=== PATIENT | female | born 1935 | race Caucasian/White ===

== ENCOUNTER → 2017-04-27 12:07 | Outpatient (CLI) | payer MEDICARE, OTHER | END | disposition home or self-care (01) | LOC: D.CT 12:07 | DX: R91.1 Solitary pulmonary nodule (principal); C50.919 Malignant neoplasm of unspecified site of unspecified female breast; C67.9 Malignant neoplasm of bladder, unspecified ==

== ENCOUNTER → 2017-05-16 17:24 | Outpatient (CLI) | payer MEDICARE, OTHER | END | disposition home or self-care (01) | LOC: D.MAMMO 15:00 | DX: Z85.3 Personal history of malignant neoplasm of breast (principal) ==

== ENCOUNTER → 2017-10-08 08:22 | Outpatient (CLI) | payer MEDICARE, OTHER | END | disposition home or self-care (01) | LOC: D.RAD 08:22 | DX: R13.10 Dysphagia, unspecified (principal) ==

== ENCOUNTER → 2018-03-11 10:44 | Outpatient (CLI) | payer MEDICARE, OTHER | END | disposition home or self-care (01) | LOC: D.CT 03-08 08:30 | DX: R91.1 Solitary pulmonary nodule (principal) ==

== ENCOUNTER 2018-04-08 08:00 | Outpatient (CLI) | payer MEDICARE, OTHER | END 2018-04-08 10:39 | disposition home or self-care (01) | LOC: D.MAMMO 08:00 | DX: Z85.3 Personal history of malignant neoplasm of breast (principal); R92.0 Mammographic microcalcification found on diagnostic imaging of breast; Z98.890 Other specified postprocedural states ==

== ENCOUNTER 2018-11-02 21:52 | Emergency (ER) | payer MEDICARE, BC ==
[~2018-11-02] VITALS: Ht 162.6 cm; Wt 77.1 kg
[2018-11-02 21:53] VITALS: Ht 162.6 cm; Wt 77.1 kg
[2018-11-02] MEDS ORDERED: TAMOXIFEN CITRA20 MG PO (21:55)
[2018-11-02] MEDS ORDERED: LIPITOR10 MG (21:55)
[2018-11-02] MEDS ORDERED: NORVASC10 MG PO (21:55)
[2018-11-02] MEDS ORDERED: OMEPRAZOLE20 M1 PO (21:56)
[2018-11-02] MEDS ORDERED: LEXAPRO20 MG PO (21:56)
[2018-11-02] MEDS ORDERED: CYCLOBENZAPRINE10 MG PO (22:18)
[2018-11-02] MEDS ORDERED: MEDROL DOSE PACK4 MG PO (22:18)
[2018-11-02 22:53] VITALS: BP 142/89
== END 2018-11-02 22:36 | disposition home or self-care (01) ==
LOC: D.ER 21:52
DX: M54.31 Sciatica, right side (principal); M62.838 Other muscle spasm

== ENCOUNTER → 2018-11-12 11:05 | Outpatient (CLI) | payer MEDICARE ==
[~2018-11-12 11:05] MED LIST: CYCLOBENZAPRINE10 MG PO; LEXAPRO20 MG PO; LIPITOR10 MG; MEDROL DOSE PACK4 MG PO; NORVASC10 MG PO; OMEPRAZOLE20 M1 PO; TAMOXIFEN CITRA20 MG PO
== END | disposition home or self-care (01) ==
LOC: D.CT 10-14 14:00
DX: R91.1 Solitary pulmonary nodule (principal)

== ENCOUNTER → 2019-03-13 09:48 | Outpatient (CLI) | payer MEDICARE | END | disposition home or self-care (01) | LOC: D.MRI 09:48 | PROVIDERS: ATTEND Orthopaedic Surgery | DX: M75.102 Unspecified rotator cuff tear or rupture of left shoulder, not specified as traumatic (principal) ==

== ENCOUNTER 2019-05-08 13:22 | Emergency (ER) | payer MEDICARE ==
[~2019-05-08] VITALS: Ht 162.6 cm; Wt 81.8 kg
[2019-05-08 13:37] VITALS: BP 146/90; Ht 162.6 cm; Wt 81.8 kg
[2019-05-08 14:19] LABS: BASOPHILS 0.1 % (0-2); EOSINOPHILS 0.6 % (0-7); HEMATOCRIT 43.1 % (36.0-48.0); HEMOGLOBIN 14.3 g/dL (12-16); IMMATURE GRANULOCYTES 0.4 % (0-5); LYMPHOCYTES 13.3 % (15-50); MCH 28.4 pg (26.0-34.0); MCHC 33.2 g/dL (31.0-37.0); MCV 85.5 fL (80.0-100.0); MEAN PLATELET VOLUME 9.5 fL (7.4-10.4); NEUTROPHILS 78.6 % (40-80); PLATELET COUNT 230 10x3/uL (130-400); RBC 5.04 10x6/uL (4.00-5.40); RDW 12.9 % (11.5-14.5); WBC 15.8 10x3/uL (4.8-10.8)
[2019-05-08 14:26] LABS: ALBUMIN 3.4 g/dL (3.4-5.0); ANION GAP 15.4 mmol/L (8-16); BILIRUBIN - TOTAL 0.47 mg/dL (0.2-1.3); CALCIUM 9.4 mg/dL (8.5-10.1); CARBON DIOXIDE 26.3 mmol/L (21.0-32.0); CREATININE - SERUM 1.3 mg/dL (0.6-1.3); POTASSIUM - SERUM 3.7 mmol/L (3.5-5.1); PROTEIN - SERUM 7.7 g/dL (6.4-8.2)
[2019-05-08 14:51] LABS: APPEARANCE CLEAR (CLEAR); BILIRUBIN NEGATIVE (NEGATIVE); COLOR YELLOW (YELLOW); GLUCOSE NEGATIVE (NEGATIVE); KETONE NEGATIVE (NEGATIVE); NITRITE NEGATIVE (NEGATIVE); PROTEIN TRACE mg/dL (NEGATIVE); SPECIFIC GRAVITY 1.025 (1.005-1.020); UROBILINOGEN NORMAL (NORMAL)
[2019-05-08 14:52] LABS: BACTERIA MODERATE /hpf (NONE SEEN); RED CELLS - URINE 0-5 /hpf (0-5)
== END 2019-05-08 16:10 | disposition home or self-care (01) ==
LOC: D.ER 13:22
PROVIDERS: Family Medicine
DX: F32.9 Major depressive disorder, single episode, unspecified (principal)

== ENCOUNTER 2019-05-11 02:37 | Inpatient (IN) | payer MEDICARE, BC ==
[~2019-05-11] VITALS: Ht 162.6 cm; Wt 96.5 kg
[2019-05-11 03:00] LABS: BASOPHILS 0.1 % (0-2); EOSINOPHILS 0.9 % (0-7); HEMATOCRIT 40.4 % (36.0-48.0); HEMOGLOBIN 13.5 g/dL (12-16); IMMATURE GRANULOCYTES 0.2 % (0-5); LYMPHOCYTES 16.8 % (15-50); MCH 28.1 pg (26.0-34.0); MCHC 33.4 g/dL (31.0-37.0); MCV 84.2 fL (80.0-100.0); MEAN PLATELET VOLUME 9.3 fL (7.4-10.4); MONOCYTES 6.1 % (2-11); NEUTROPHILS 75.9 % (40-80); PLATELET COUNT 244 10x3/uL (130-400); RDW 12.4 % (11.5-14.5); WBC 13.7 10x3/uL (4.8-10.8)
--- NOTE | 2019-05-11 03:00 | NUR ---
RN AND PT SPOKE TO PT DAUGHTER, ADONIS, AT [phone].
[2019-05-11 03:12] LABS: ALBUMIN 3.2 g/dL (3.4-5.0); ANION GAP 16.1 mmol/L (8-16); BILIRUBIN - TOTAL 0.37 mg/dL (0.2-1.3); CALCIUM 9.3 mg/dL (8.5-10.1); CARBON DIOXIDE 23.2 mmol/L (21.0-32.0); CREATININE - SERUM 1.3 mg/dL (0.6-1.3); POTASSIUM - SERUM 3.3 mmol/L (3.5-5.1); PROTEIN - SERUM 7.4 g/dL (6.4-8.2)
[2019-05-11 03:18] LABS: APPEARANCE CLEAR (CLEAR); COLOR YELLOW (YELLOW); GLUCOSE NEGATIVE (NEGATIVE); KETONE NEGATIVE (NEGATIVE); NITRITE NEGATIVE (NEGATIVE); PROTEIN NEGATIVE (NEGATIVE); SPECIFIC GRAVITY 1.015 (1.005-1.020)
[2019-05-11 03:19] LABS: BILIRUBIN NEGATIVE (NEGATIVE); UROBILINOGEN NORMAL (NORMAL)
[2019-05-11 03:50] LABS: THYROID STIMULATING HORMONE 4.65 uIU/mL (0.36-3.74)
[2019-05-11 03:51] LABS: TROPONIN-I 0.066 ng/mL (0.000-0.060)
--- NOTE | 2019-05-11 04:00 | NUR ---
PT UPDATED ON PLAN OF CARE. PT DENIES FURTHER QUESTIONS.
--- NOTE | 2019-05-11 04:45 | NUR ---
PT ARRIVED VIA STRECHER FROM ER WITH DX WEAKNESS, VERTIGO AND ELEVATED TROPONIN. ALERT AND ORIENTED TO PERSON, PLACE AND TIME. JAMIL. IV TO LFA WITH NS AT 100CC/HR. IV PATENT.
--- NOTE | 2019-05-11 05:11 | NUR ---
HOME MEDS OF AMLODIPINE AND TRIAM/ HCTZ PLACED IN MEDICATION ENVELOPE AND PLACED IN ER PYXIS.
[2019-05-11] MEDS ORDERED: ZOLOFT100 MG PO (05:14)
[2019-05-11] MEDS ORDERED: TRIAMTERENE-HC1 EAC6 PO (05:15)
[2019-05-11 05:16] VITALS: BP 145/70; BMI 24.8
--- NOTE | 2019-05-11 07:31 | NUR ---
ASSESSMENT COMPLETED. ALERT AND ORIENTED. UP TO BR WITH HELP. GAIT STEADY. TELEMERTY SHOWS SR 60. IV TO LEFT FOREARM, PATENT. BED ALARM ON. WILL MONITOR
[2019-05-11 08:15] LABS: CKMB 0.9 U/L (0.0-3.6); CREATINE KINASE 22 UL (21-215)
[2019-05-11 08:26] LABS: TROPONIN-I 0.062 ng/mL (0.000-0.060)
[2019-05-11 08:55] VITALS: BP 124/67
[2019-05-11 13:01] VITALS: BP 135/56
[2019-05-11 14:22] LABS: CKMB 0.7 U/L (0.0-3.6); CREATINE KINASE 22 UL (21-215); TROPONIN-I 0.036 ng/mL (0.000-0.060)
--- NOTE | 2019-05-11 14:39 | NUR ---
I have reviewed this patient and I concur with the Shift Assessment completed by the Licensed Practical Nurse today this shift.
[2019-05-11 17:59] VITALS: BP 118/54
[2019-05-11 20:00] VITALS: BP 132/66
--- NOTE | 2019-05-11 20:02 | NUR ---
PT IN BR ON INITIAL ROUNDS. PT VOIDED MODERATE AMOUNT OF URINE. ASSISTED PT BACK TO BED. PT VERY UNSTEADY ON FEET. PT HAS C/O ACID REFLUX AND INSISTED ON HAVING HER PROTONIX AT TTHAT TIME. PROTONIX BROUGHT TO PT AFTER BEDSIDE ROUNDING AND PT DENIED REQUESTING MED. STATED SHE DOESN'T REMEMBER ASKING FOR PROTONIX FOR HER ACID REFLUX. ASESSMENT COMPLETED AT 1935 HRS. PT ALERT, ORIENTED TO PERSON AND PLACE. REORIENTD TO TIME AND SITUATION. POOR SHORT TERM MEMORY. IV TO LFA WITH NS AT 100CC/HR. IV PATENT. LUNGS DIMINISHED IN BASES BILAT. PALPABLE PERIPHERAL PULSES. PT REFUSES TO WEAR HOSPITAL GOWN. SR UP X2, CALL LIGHT WITHIN REACH.
--- NOTE | 2019-05-11 21:21 | NUR ---
PM MEDS GIVEN. PT CURRENTLY WATCHING TV. SR UP X2, CALL LIGHT WITHIN REACH AND BED ALARM ON.
--- NOTE | 2019-05-11 22:06 | NUR ---
ASSISTED PT TO BSC WITH STAFF X2. PT VERY WEAK AND UNSTEADY ON FEET. VOIDED 300CC OF CLEAR, YELLOW URINE. ASSISTED VLAD TO BED. JAMIL. EQUAL HAND AND FOOT STRENGHT. PT CRYING STATING SHE HAS NEVER BEEN LIKE THIS BEFORE. INFORMED PT THAT IS WHY SHE IS HERE. INFORMED PT SHE CALLED EMS LAST PM FOR THIS REASON. PT STATES SHE REMEMBERS CALLING EMS BUT NOT THE REASON WHY. EMOTIONAL SUPPORT GIVEN. SR UP X2, CALL LIGHT WITHIN REACH AND BED ALARM ON.
--- NOTE | 2019-05-11 23:50 | NUR ---
PT ASSISTED TO BSC. VOIDED 300CC OF YELLOW URINE. ASSISTED BACK TO BED. PT ABLE TO DO MORE FOR HERSELF AT THSI TIME. STILL HAS UNSTEADY GAIT AND WEAKNESS. SR UP X2, CALL LIGHT WITHIN REACH AND BED ALARM ON.
[2019-05-12 00:14] VITALS: BP 134/62
--- NOTE | 2019-05-12 02:04 | NUR ---
ATTEMPTED TO ASSIST PT TO BSC. PT WOULD NOT HELP STAFF ASSIT HER TO A SITTING POSITON. WHEN PLACED IN A SITTING POSITION PT WOULD FALL BACK ON THE BED AND GIGGLE. PT UNHAPPY ABOUT BEING PLACED ON A BEDPAN. INFORMED PT THAT IS HER ONLY OPTION AT THIS TIME. PT PLACED ON BEDPAN WITH NO URINE. BEDPAN REMOVED AND REPOSITIONED IN BED FOR COMFORT. SR UP X2, CALL LIGHT WITHIN REACH AND BED ALARM ON.
--- NOTE | 2019-05-12 02:49 | NUR ---
VOIDED ON BED AND BEDPAN. PT INCONTINENT CARE DONE AND BED LINENS CHANGED. PT TOLERATED ACTIVITY WELL. EXPLAINED TO PT SAFETY CONCERNS FOR PT AND STAFF REGARDING GETING HE UP TO THE BSC. PT STATED UNDERSTANDING. SR UP X2, CALL LIGHT WITHIN REACH AND BED ALARM ON.
--- NOTE | 2019-05-12 04:06 | NUR ---
PT RESTING WITH EYES CLOSED. RESP EVEN AND REGULAR. SR UP X2, CALL LIGHT WITHIN REACH AND BED ALARM ON.
[2019-05-12 04:15] VITALS: BP 134/60
[2019-05-12 05:41] LABS: BASOPHILS 0.1 % (0-2); EOSINOPHILS 1.3 % (0-7); HEMATOCRIT 36.7 % (36.0-48.0); HEMOGLOBIN 12.2 g/dL (12-16); IMMATURE GRANULOCYTES 0.2 % (0-5); LYMPHOCYTES 20.8 % (15-50); MCHC 33.2 g/dL (31.0-37.0); MCV 84.4 fL (80.0-100.0); MONOCYTES 6.4 % (2-11); NEUTROPHILS 71.2 % (40-80); PLATELET COUNT 212 10x3/uL (130-400); RBC 4.35 10x6/uL (4.00-5.40); RDW 12.6 % (11.5-14.5)
[2019-05-12 05:50] LABS: WBC 9.9 10x3/uL (4.8-10.8)
[2019-05-12 06:04] LABS: ANION GAP 13.1 mmol/L (8-16); CALCIUM 8.3 mg/dL (8.5-10.1); POTASSIUM - SERUM 3.1 mmol/L (3.5-5.1)
--- NOTE | 2019-05-12 06:38 | NUR ---
VSS THROUGHOUT NIGHT. PT LESS EMOTIONAL THIS AM. K+ 3.1 KCL 40 MEQ PO GIVEN. NEEDS MET; WILL CONTINUE TO MONITOR.
[2019-05-12 08:25] VITALS: BP 115/64
--- NOTE | 2019-05-12 08:27 | NUR ---
ASSESSMENT DONE. DENIES NEEDS,
--- NOTE | 2019-05-12 11:20 | NUR ---
Rehab Prescreening Consult recieved and the chart has been reviewed. She is a good ARU candidate, but has a PT eval pending. Rehab will follow to see what her functional needs are after the eval. Adenike Eubanks RN Clinical Liaison, Rehab
[2019-05-12 16:45] VITALS: BP 151/65
--- NOTE | 2019-05-12 17:04 | NUR ---
WITHOUT CHANGES OR DISTRESS NOTED AT THIS TIME
--- NOTE | 2019-05-12 17:46 | MORECARE ---
CASE MANAGEMENT DISCHARGE SUMMARY PATIENT: TAYO AGUILAR UNIT: [id number] ADM DATE: 05/12/19 AGE: 83 : 36 SEX: F ROOM/BED: D.5452 AUTHOR: LYUDMILA,DOC PHYSICIAN: REFERRING PHYSICIAN: LUCIAN VAN MD DATE OF SERVICE: 05/12/19 Discharge Plan Patient Name: TAYO AGUILAR [facility] [facility] 1935 Planned Disposition: Inpatient Rehab Anticipated Discharge Date: 05/13/19 Discharge Date: Expected LOS: 1 Initial Reviewer: [id number] Initial Review Date: 05/12/2019 Generated: 05/12/19 6:45 pm Comments DCP- Discharge Planning Updated by [id number]: Patrick Ibanez on 05/12/19 4:[address] Patient Name: TAYO AGUILAR Admission Status: ER Accout number: [id number] Admission Date: 05-12-2019 : 1935 Admission Diagnosis: Attending: LUCIAN VAN Current LOS: 1 Anticipated DC Date: 05-13-2019 Planned Disposition: Inpatient Rehab Primary Insurance: MEDICARE A & B PLANNED EXTERNAL PROVIDER: [facility] Discharge Planning Comments: CM RECEIVED ORDER FOR INPATIENT REHAB PRESCREENING. CM MET WITH PT IN ROOM TO DISCUSS DISCHARGE PLANNING AND NEEDS. PT REPORTS LIVING AT [facility] IN [place] INDEPENDENTLY AND ALONE. PT HAS A CANE WITH NO MEDICAL EQUIPMENT PROVIDER PREFERENCE. PT HAS MEALS PREPARED AND HOUSKEEPING THROUGH [facility]. CM DISCUSSED AVAILABILITY OF HOME HEALTH, REHAB SERVICES AND MEDICAL EQUIPMENT. PT WOULD LIKE REHAB AT [place] AND STATES SHE WILL PARTICIPATE WITH THERAPY TO GET STRONGER WITH GOAL TO GO HOME. CM SPOKE TO [facility]UDY OF [facility] WHO ADVISED THEY WILL ACCEPT PT IF PT WILL PARTICIPATE WITH REHAB SERVICES. CM NOTIFIED DR. VAN'S NURSE IN OFFICE WHO ADVISED THE DR. VAN IS NOT READY TO DISCHARGE PT TO REHAB. [facility] WILL ACCEPT PT AT DISCHARGE. NOTIFY [place] [facility] WHEN PT IS READY TO DISCHARGE. Inspector Insulation: Patrick Ibanez DCPIA - Discharge Planning Initial Assessment Updated by [id number]: Patrick Ibanez on 05/12/19 5:39 pm * Is the patient Alert and Oriented? Yes * How many steps to enter\exit or inside your home? NONE * PCP DR. VAN * Pharmacy PATIENT CANNOT REMEMBER * Preadmission Environment Independent [facility] Apartment * Other Environment [facility] * Facility Name [facility] * ADLs Independent * Equipment Cane * Other Equipment NO MEDICAL EQUIPMENT PROVIDER PREFERENCE * List name and contact numbers for known caregivers / representatives who currently or will assist patient after discharge: KEILAABIOLA CHEMA, BROTHER, ADONIS WASHINGTON DTR, * Verbal permission to speak to the caregivers and representatives has been obtained from the patient. N/A * Community resources currently utilized None * Please name any agencies selected above. NONE * Additional services required to return to the preadmission environment? Yes * Can the patient safely return to the preadmission environment? Yes * Has this patient been hospitalized within the prior 30 days at any hospital? No Patient Name: TAYO AGUILAR Page [id number] at 1746 All edits/amendments must be made on the electronic document DICTATION DATE: 05/12/191744 BUSINESS MACHINE OPERATOR: JANEL 05/12/191744 RPT#: [id number] LA DATE: STATUS: AD[facility] [address] [place] [address] END OF REPORT
[2019-05-12 20:00] VITALS: BP 133/75
--- NOTE | 2019-05-12 23:15 | NUR ---
PATIENT STATES SHE I HAVING PAIN IN HER PELVIC REGION BUT CANT EXPLAIN IT. WHEN ASKED IF SHE WOULD LIKE PAIN MEDICATION SHE SAID SHE WOULD NOT!!!
[2019-05-13 00:02] VITALS: BP 147/73
--- NOTE | 2019-05-13 01:25 | NUR ---
ASSISTED EGG CANDLER IN CHANGING PATIENT'S BEDDING BECAUSE PATIENT IS WET BUT IS REFUSING TO LET ANYONE TOUCH HER. FINALLY LET USE CHANGE HER AND THEN PATIENT STATED THAT HER DAUGHTER IS COMING AND SHE IS GOING TO SIC HER ON US FOR NOT TAKING CARE OF HER. PLACE A WARM BLANKET ON PATIENT AND TURNED OF AC BECAUSE PATIENT STATES SHE WAS FREEZING
--- NOTE | 2019-05-13 04:15 | NUR ---
I have reviewed this patient and I concur with the Shift Assessment completed by the Licensed Practical Nurse today this shift.
--- NOTE | 2019-05-13 04:30 | NUR ---
REPORT RECIEVED AND ROUNDING COMPLETE. PATIENT LAYING IN BED. iV WITH CATH INTACT LAYING ON BEDSIDE TABLE, I ASKEDWHAT HAPPENED TO HER IV AND SHE STATED THAT THE OTHER NURSE PULLED IT OUT. PATIENT THEN STATED THAT I COULD NOT REPLACE IT BECAUSE HER DAUGHTER IS ON HER WAY A SHE WILL PUNISH ALL OF US IF WE TOUCH HER AGAIN. PATIENT REFUSED TO LET ME PUT HER TLEMTRY BACK ON AND ALSO WOULD NOT ALLOW ME TO PUT HER O2 BACK ON HER. SHE ASKED ME TO LEAVE HER ROOM AND NOT TO COME BACK. CALL LIGHT WITHIN REACH AND I REMINDED HER HOW TO USE IT. BED IN LOWEST POSITION AND LOCKED.
--- NOTE | 2019-05-13 05:43 | NUR ---
PATIENT USED CALL LIGLAURIE TO CALL ME INTO ROOM TO TELL ME THAT SHE IS HAVING RIGHT SIDED PELVIC PAIN/SPASM. ASKED PATIENT IF SHE WANTED PAIN MEDICATION AND SHE SAIF YES. GAVE HER MEDICATIONS PER MAR. NO OTHER NEEDS AT THIS TIME CALL LIGHT WITHIN REACH.
[2019-05-13 06:36] LABS: BASOPHILS 0.2 % (0-2); EOSINOPHILS 1.2 % (0-7); HEMATOCRIT 37.4 % (36.0-48.0); HEMOGLOBIN 12.3 g/dL (12-16); IMMATURE GRANULOCYTES 0.2 % (0-5); LYMPHOCYTES 20.5 % (15-50); MCH 27.6 pg (26.0-34.0); MCHC 32.9 g/dL (31.0-37.0); MCV 83.9 fL (80.0-100.0); MEAN PLATELET VOLUME 9.2 fL (7.4-10.4); MONOCYTES 7.9 % (2-11); PLATELET COUNT 229 10x3/uL (130-400); RBC 4.46 10x6/uL (4.00-5.40); RDW 12.5 % (11.5-14.5); WBC 9.7 10x3/uL (4.8-10.8)
[2019-05-13 06:38] LABS: POTASSIUM - SERUM 3.3 mmol/L (3.5-5.1)
[2019-05-13 06:39] LABS: ANION GAP 12.5 mmol/L (8-16); CALCIUM 8.6 mg/dL (8.5-10.1); CARBON DIOXIDE 24.8 mmol/L (21.0-32.0)
--- NOTE | 2019-05-13 06:40 | NUR ---
ASSESSMENT DONE. C/O PAIN TO RT LEG NO BETTER. NOTIFY DR VAN.
[2019-05-13 07:55] VITALS: BP 154/67
[2019-05-13 12:25] VITALS: BP 158/64
[2019-05-13 14:21] VITALS: Ht 162.6 cm; Wt 96.5 kg
[2019-05-13 14:46] VITALS: BP 126/69
--- NOTE | 2019-05-13 17:30 | NUR ---
DAUGHTER AT SIDE. WITHOUT CHANGES NOTED AT THIS TIME.
--- NOTE | 2019-05-13 19:15 | NUR ---
PT LAYING IN BED WITH EYES CLOSED. MOUTH OPEN. SNORING AND RESP EVEN AND UNLABORED. PT HAS NO S/S OF DISTRESS. PT BED LOW AND CALL LIGHT IN REACH. NAME AND DATE PLACED ON BOARD. WILL CPOC
[2019-05-13 20:00] VITALS: BP 138/69
--- NOTE | 2019-05-13 22:34 | NUR ---
1/2 NS INFUSING TO LEFT FOREARM AT 75 ORDERED. PT SITTING UP WITH HOB 40 DRINKING WATER. TOOK NIGHT MEDICATIONS. PT HAS CONFUSION AND DOESNT RETAIN EDUCATION GIVEN. PT HAS NO S/S OF DISTRESS. BED LOW AND CALL LIGHT IN REACH. ALARM ON AND ACTIVE. PT DENIES ANY NEEDS. WILL CPOC
[2019-05-14] VITALS: BP 114/73
--- NOTE | 2019-05-14 00:34 | NUR ---
PT TRYING TO PULL HER HAIR OUT AND IS HAVING SOME CONFUSION. ATIVAN GIVEN ORDERED. WILL CPOC
--- NOTE | 2019-05-14 01:09 | NUR ---
PT NOW LAYING IN BED WITH EYES CLOSED SNORING WITH MOUTH OPEN. PT HAS NO S/S OF DISTRESS. 1/2 NS INFUSING ORDERED. PT BED LOW AND CALL LIGHT IN REACH. WILL CPOC
[2019-05-14 04:00] VITALS: BP 152/79
[2019-05-14 05:35] LABS: BASOPHILS 0.2 % (0-2); HEMATOCRIT 38.8 % (36.0-48.0); HEMOGLOBIN 12.6 g/dL (12-16); IMMATURE GRANULOCYTES 0.3 % (0-5); LYMPHOCYTES 17.3 % (15-50); MCH 27.6 pg (26.0-34.0); MCHC 32.5 g/dL (31.0-37.0); MCV 85.1 fL (80.0-100.0); MEAN PLATELET VOLUME 9.4 fL (7.4-10.4); MONOCYTES 6.5 % (2-11); NEUTROPHILS 73.7 % (40-80); PLATELET COUNT 232 10x3/uL (130-400); RBC 4.56 10x6/uL (4.00-5.40); RDW 12.7 % (11.5-14.5); WBC 11.3 10x3/uL (4.8-10.8)
--- NOTE | 2019-05-14 05:40 | NUR ---
MORNING PROTONIX GIVEN. PT HAS CONFUSION. NO S/S OF DISTRESS. PT BED LOW AND CALL LIGHT IN REACH. 1/2 NS INFUSING ORDERED. ALARM ON AND ACTIVE. WILL CPOC
[2019-05-14 06:03] LABS: ANION GAP 13.4 mmol/L (8-16); CALCIUM 8.5 mg/dL (8.5-10.1); CARBON DIOXIDE 26.2 mmol/L (21.0-32.0); CREATININE - SERUM 0.9 mg/dL (0.6-1.3)
[2019-05-14 06:15] LABS: POTASSIUM - SERUM 3.6 mmol/L (3.5-5.1)
[2019-05-14 07:58] VITALS: BP 132/64
--- NOTE | 2019-05-14 09:56 | NUR ---
PT AT BS ASSISTIN TO SOB.
[2019-05-14 12:45] VITALS: BP 155/60
--- NOTE | 2019-05-14 15:03 | NUR ---
Rehab Note- Continue to follow the patient. She is a good inpatient acute rehab candidiate & will be accepted to [facility] Acute Inpatient Rehab when medically stable & ready for discharge formthe acute hospital. Awaiting MRI today. Thank you for this referral! Nai Pimentel RN Clinical Liaison, [facility] Rehab
[2019-05-14 16:15] VITALS: BP 127/62
--- NOTE | 2019-05-14 19:30 | NUR ---
REPORT RECIEVED AND ROUNDING COMPLETE. PATIENT LAYING IN BED, EYES CLOSED. PATIENT EASILY AROUSED BY TALKING IN HER ROOM. DAUGHTER AT BEDSIDE. PATIENT HAS A LEFT FOREARM PIV RUNNING 1/2 NORMAL SALINE, NO S/SX OF INFILTRATION. PATIENT IS SHOWING NO S/SX OF DISTRESS AT THIS TIME. CALL LIGHT WITHIN REACH AND BED IN LOWEST AND LOCKED POSITION. PATIENT AND DAUGHTER BOTH STATE NO NEEDS AT THIS TIME.
[2019-05-14 20:00] VITALS: BP 112/70
--- NOTE | 2019-05-14 23:43 | NUR ---
PATIENT COMPLAINING OR NECK AND HIP PAIN, TREATED PAIN PER MAR
[2019-05-15 00:34] VITALS: BP 116/73; BP 146/73
--- NOTE | 2019-05-15 02:48 | NUR ---
PAGED DR. THOMPSON CONSERING PATIENTS UNCONTROLLED PAIN LEVEL.
--- NOTE | 2019-05-15 02:49 | NUR ---
DR. VAN CALLED BACK AND GAVE ORDERS. WILL FOLLOW ORDERS PER MAR
--- NOTE | 2019-05-15 04:01 | NUR ---
I have reviewed this patient and I concur with the Shift Assessment completed by the Licensed Practical Nurse today this shift.
[2019-05-15 05:01] VITALS: BP 148/70
[2019-05-15 05:03] LABS: BASOPHILS 0.1 % (0-2); EOSINOPHILS 0.4 % (0-7); HEMATOCRIT 36.9 % (36.0-48.0); HEMOGLOBIN 12.3 g/dL (12-16); IMMATURE GRANULOCYTES 0.4 % (0-5); MCH 27.8 pg (26.0-34.0); MCHC 33.3 g/dL (31.0-37.0); MCV 83.5 fL (80.0-100.0); MEAN PLATELET VOLUME 9.6 fL (7.4-10.4); MONOCYTES 6.7 % (2-11); NEUTROPHILS 85.4 % (40-80); PLATELET COUNT 223 10x3/uL (130-400); RBC 4.42 10x6/uL (4.00-5.40); RDW 12.4 % (11.5-14.5); WBC 13.6 10x3/uL (4.8-10.8)
[2019-05-15 05:42] LABS: ALBUMIN 2.7 g/dL (3.4-5.0); ANION GAP 13.7 mmol/L (8-16); BILIRUBIN - TOTAL 0.64 mg/dL (0.2-1.3); CALCIUM 8.2 mg/dL (8.5-10.1); CARBON DIOXIDE 24.6 mmol/L (21.0-32.0); CREATININE - SERUM 0.8 mg/dL (0.6-1.3); MAGNESIUM - SERUM 1.4 mg/dL (1.8-2.4); PHOSPHOROUS 2.7 mg/dL (2.5-4.9); POTASSIUM - SERUM 3.3 mmol/L (3.5-5.1); PROTEIN - SERUM 6.3 g/dL (6.4-8.2)
--- NOTE | 2019-05-15 07:34 | NUR ---
AWAKE AND WANTING PAIN MEDS. STATES RIGHT ARM AND LEG WELL HEAD ARE HURTING. TELEMERTY SHOWS SR. IV TO LEFT FA WITH 1/2NS AT 75. PT SIDE RAIL UP WITH CALL LIGHT IN REACH. WILL MONITOR
[2019-05-15 08:57] VITALS: BP 156/78
--- NOTE | 2019-05-15 11:08 | NUR ---
PT FEELS PT IS UNABLE TO SIT IN CHAIR SHE IS A TOLTAL LIFT AND HAS TO BE HELD UP.
--- NOTE | 2019-05-15 12:59 | NUR ---
Nutrition Follow-up: Diet: Cardiac PO intake: 10% avg over past 7 meals Wt: 144# Last BM: 05/09 per chart Labs reviewed Meds reviewed Rec continue current diet as tolerated. Offer nutrition supplements. [place] food preferences within diet restrictions. If PO intake does not improve, may consider nutrition support; RD available for assistance. RD following.
[2019-05-15 13:07] VITALS: BP 156/75
[2019-05-15 16:37] VITALS: BP 142/64
--- NOTE | 2019-05-15 19:40 | NUR ---
RETURN FROM [facility] TAB AND CO LOTS OF PAIN WILL GIVE MSO4 BED IS LOW AND LOCKED AND CALL LIGHT PLACED WITH PT LCTA AND SKIN WARM AND DRY
--- NOTE | 2019-05-15 20:32 | NUR ---
CONTINUES TO REST WITH EYES CLOSED RESP EVEN AND NON LABERED AT 22 I TOLD TECH TO DELAY VITAL SOUNDS TO PRESERVE PTS PAIN FREE STATE
[2019-05-16 09:04] VITALS: BP 153/72
--- NOTE | 2019-05-16 11:42 | MORECARE ---
CASE MANAGEMENT DISCHARGE SUMMARY PATIENT: TAYO AGUILAR UNIT: [id number] ADM DATE: 05/12/19 AGE: 83 : 36 SEX: F ROOM/BED: D.2757 AUTHOR: MONICA COREAS PHYSICIAN: REFERRING PHYSICIAN: LUCIAN VAN MD DATE OF SERVICE: 05/16/19 Discharge Plan Patient Name: TAYO AGUILAR [facility] [facility] 1935 Planned Disposition: Inpatient Rehab Anticipated Discharge Date: 05/13/19 Discharge Date: Expected LOS: 1 Initial Reviewer: [id number] Initial Review Date: 05/12/2019 Generated: 05/16/19 12:42 pm Comments DCP- Discharge Planning Updated by [id number]: Anaid Rea on 05/16/19 10:[address] AROUND , I RECEIVED A CALL FRO M DR VAN STATING THAT THE PATIENT WOULD NEED TO BE TRANSFERRED SOMEWHERE 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 HE HAS REQUESTED THAT WE GET THINGS STARTED SO THAT WE ARE READY TO GO WHEN THE FAMILY DECIDES IF THEY ARE WILLING TO GO TO [facility] (WHERE DR VAN WILL BE THE ACCEPTING) OR TO [place] WHERE THEY HAVE A FAMILY MEMBER OR A FRIEND THAT IS A NEUROLOGIST. HE STATED HE WOULD CALL ME BACK WHEN HE KNOWS THIS INFORMATION. @0910, I SPOKE WITH IRENA BHANDARI RNSPANISH INTERPRETER AND RECEIVED ADMINISTRATIVE APPROVAL FOR TRANSFER. CALLED [phone] AND REQUESTED COPIES OF ALL FILMS FOR TRANSFER. AND [employer] HYDRAULIC PRESS OPERATOR IS WORKING ON REQUIRED TRANSFER PAPER DOCUMENTATION. ALL THINGS ARE READY CAN BE, SOON DR VAN LETS ME KNOW WHERE WE ARE GOING TO TRANSFER. DCP- Discharge Planning Updated by [id number]: Patrick Ibanez on 05/12/19 4:[address] Patient Name: TAYO AGUILAR Admission Status: ER Accout number: [id number] Admission Date: 05-12-2019 : 1935 Admission Diagnosis: Attending: LUCIAN VAN Current LOS: 1 Anticipated DC Date: 05-13-2019 Planned Disposition: Inpatient Rehab Primary Insurance: MEDICARE A & B PLANNED EXTERNAL PROVIDER: [facility] Discharge Planning Comments: CM RECEIVED ORDER FOR INPATIENT REHAB PRESCREENING. CM MET WITH PT IN ROOM TO DISCUSS DISCHARGE PLANNING AND NEEDS. PT REPORTS LIVING AT [facility] IN [place] INDEPENDENTLY AND ALONE. PT HAS A CANE WITH NO MEDICAL EQUIPMENT PROVIDER PREFERENCE. PT HAS MEALS PREPARED AND HOUSKEEPING THROUGH [facility]. CM DISCUSSED AVAILABILITY OF HOME HEALTH, REHAB SERVICES AND MEDICAL EQUIPMENT. PT WOULD LIKE REHAB AT [place] AND STATES SHE WILL PARTICIPATE WITH THERAPY TO GET STRONGER WITH GOAL TO GO HOME. CM SPOKE TO RUDY OF [facility] WHO ADVISED THEY WILL ACCEPT PT IF PT WILL PARTICIPATE WITH REHAB SERVICES. CM NOTIFIED DR. VAN'S NURSE IN OFFICE WHO ADVISED THE DR. VAN IS NOT READY TO DISCHARGE PT TO REHAB. [facility] WILL ACCEPT PT AT DISCHARGE. NOTIFY [place] [facility] WHEN PT IS READY TO DISCHARGE. Scientific Research Manager: Patrick Ibanez DCPIA - Discharge Planning Initial Assessment Updated by [id number]: Patrick Ibanez on 05/12/19 5:39 pm * Is the patient Alert and Oriented? Yes * How many steps to enter\exit or inside your home? NONE * PCP DR. VAN * Pharmacy PATIENT CANNOT REMEMBER * Preadmission Environment Independent [facility] Apartment * Other Environment [facility] * Facility Name [facility] * ADLs Independent * Equipment Cane * Other Equipment NO MEDICAL EQUIPMENT PROVIDER PREFERENCE * List name and contact numbers for known caregivers / representatives who currently or will assist patient after discharge: YISSEL BEAR, BROTHER, ADONISRadha WASHINGTON, DTR, * Verbal permission to speak to the caregivers and representatives has been obtained from the patient. N/A * Community resources currently utilized None * Please name any agencies selected above. NONE * Additional services required to return to the preadmission environment? Yes * Can the patient safely return to the preadmission environment? Yes * Has this patient been hospitalized within the prior 30 days at any hospital? No Coverage Notice Reviewer: [id number] - Patrick Ibanez Notice Issued Date-Time: 05/14/2019 8:15 Notice Type: IM Discharge Notice Notice Delivered To: Patient Relationship to Patient: Leather Dresser Name: Delivery Method: HAND - Hand Delivered Loyda Days: Prior Verbal Notification: Recipient Understood Notice: Yes Recipient Signature: Yes Med Rec Note Co-signed by Attending: Coverage Notice Comment: Last DP export: 05/12/19 4:46 p Patient Name: TAYO AGUILAR Page [id number] at 1142 All edits/amendments must be made on the electronic document DICTATION DATE: 05/16/19 1142 LINTER TENDER: JANEL 05/16/19 1142 RPT#: [id number] DC DATE: STATUS: ADM IN [facility] [address] [place] [address] END OF REPORT
[2019-05-16] MEDS ORDERED: BACLOFEN10 MG PO (11:44)
[2019-05-16] MEDS ORDERED: ASPIRIN81 MG PO (11:44)
[2019-05-16] MEDS ORDERED: ATIVAN IV (11:45)
[2019-05-16] MEDS ORDERED: ULTRAM50 MG PO (11:46)
[2019-05-16] MEDS ORDERED: Morphine Sulfate IV (11:46)
[2019-05-16 12:20] VITALS: BP 162/75
--- NOTE | 2019-05-16 14:18 | NUR ---
OT NOTE: PT COMPLETED R HAND PROM. PT COMPLETED RUE POSITIONING TO DECREASE SKIN BREAKDOWN AND INTEGRITY OF JOINTS. PT COMPLETED FACE WASH WITH MOD A. THANK YOU, SUZANNE ERICKSON
--- NOTE | 2019-05-16 17:30 | NUR ---
DISCHARGED. TO [facility] PER AMBULANCE.
--- NOTE | 2019-05-20 08:01 | MORECARE ---
CASE MANAGEMENT DISCHARGE SUMMARY PATIENT: TAYO AGUILAR UNIT: [id number] ADM DATE: 05/12/19 AGE: 83 : 36 SEX: F ROOM/BED: D.1893 AUTHOR: MONICA COREAS PHYSICIAN: REFERRING PHYSICIAN: LUCIAN VAN MD DATE OF SERVICE: 05/20/19 Discharge Plan Patient Name: TAYO AGUILAR [facility] [facility] 1935 Planned Disposition: Acute Care Hospital Anticipated Discharge Date: 05/16/19 Discharge Date: 05/16/2019 Expected LOS: 4 Initial Reviewer: [email or web address] Initial Review Date: 05/12/2019 Generated: 05/20/19 9:01 am Comments DCP- Discharge Planning Updated by [id number]: Anaid Rea on 05/16/19 10:[address] AROUND , I RECEIVED A CALL FRO M DR VAN STATING THAT THE PATIENT WOULD NEED TO BE TRANSFERRED SOMEWHERE 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 HE HAS REQUESTED THAT WE GET THINGS STARTED SO THAT WE ARE READY TO GO WHEN THE FAMILY DECIDES IF THEY ARE WILLING TO GO TO [facility] (WHERE DR VAN WILL BE THE ACCEPTING) OR TO [place] WHERE THEY HAVE A FAMILY MEMBER OR A FRIEND THAT IS A NEUROLOGIST. HE STATED HE WOULD CALL ME BACK WHEN HE KNOWS THIS INFORMATION. @0910, I SPOKE WITH IRENA BHANDARI RNPHARMACEUTICAL OPERATOR AND RECEIVED ADMINISTRATIVE APPROVAL FOR TRANSFER. CALLED [phone] AND REQUESTED COPIES OF ALL FILMS FOR TRANSFER. AND [employer] FRONT LINE SUPERVISOR IS WORKING ON REQUIRED TRANSFER PAPER DOCUMENTATION. ALL THINGS ARE READY CAN BE, SOON DR VAN LETS ME KNOW WHERE WE ARE GOING TO TRANSFER. DCP- Discharge Planning Updated by [id number]: Patrick Ibanez on 05/12/19 4:[address] Patient Name: TAYO AGUILAR Admission Status: ER Accout number: [id number] Admission Date: 05-12-2019 : 1935 Admission Diagnosis: Attending: LUCIAN VAN Current LOS: 1 Anticipated DC Date: 05-13-2019 Planned Disposition: Inpatient Rehab Primary Insurance: MEDICARE A & B PLANNED EXTERNAL PROVIDER: [facility] Discharge Planning Comments: CM RECEIVED ORDER FOR INPATIENT REHAB PRESCREENING. CM MET WITH PT IN ROOM TO DISCUSS DISCHARGE PLANNING AND NEEDS. PT REPORTS LIVING AT [facility] IN [place] INDEPENDENTLY AND ALONE. PT HAS A CANE WITH NO MEDICAL EQUIPMENT PROVIDER PREFERENCE. PT HAS MEALS PREPARED AND HOUSKEEPING THROUGH [facility]. CM DISCUSSED AVAILABILITY OF HOME HEALTH, REHAB SERVICES AND MEDICAL EQUIPMENT. PT WOULD LIKE REHAB AT [place] AND STATES SHE WILL PARTICIPATE WITH THERAPY TO GET STRONGER WITH GOAL TO GO HOME. CM SPOKE TO RUDY OF [facility] WHO ADVISED THEY WILL ACCEPT PT IF PT WILL PARTICIPATE WITH REHAB SERVICES. CM NOTIFIED DR. VAN'S NURSE IN OFFICE WHO ADVISED THE DR. VAN IS NOT READY TO DISCHARGE PT TO REHAB. [facility] WILL ACCEPT PT AT DISCHARGE. NOTIFY [place] [facility] WHEN PT IS READY TO DISCHARGE. Salt Maker: Patrick Ibanez DCPIA - Discharge Planning Initial Assessment Updated by [id number]: Patrick Ibanez on 05/12/19 5:39 pm * Is the patient Alert and Oriented? Yes * How many steps to enter\exit or inside your home? NONE * PCP DR. VAN * Pharmacy PATIENT CANNOT REMEMBER * Preadmission Environment Independent [facility] Apartment * Other Environment [facility] * Facility Name [facility] * ADLs Independent * Equipment Cane * Other Equipment NO MEDICAL EQUIPMENT PROVIDER PREFERENCE * List name and contact numbers for known caregivers / representatives who currently or will assist patient after discharge: YISSEL BEAR, BROTHER, ADONIS W[place], DTR, * Verbal permission to speak to the caregivers and representatives has been obtained from the patient. N/A * Community resources currently utilized None * Please name any agencies selected above. NONE * Additional services required to return to the preadmission environment? Yes * Can the patient safely return to the preadmission environment? Yes * Has this patient been hospitalized within the prior 30 days at any hospital? No Coverage Notice Reviewer: [id number] - Patrick Ibanez Notice Issued Date-Time: 05/14/2019 8:15 Notice Type: IM Discharge Notice Notice Delivered To: Patient Relationship to Patient: Track Laying Supervisor Name: Delivery Method: HAND - Hand Delivered Loyda Days: Prior Verbal Notification: Recipient Understood Notice: Yes Recipient Signature: Yes Med Rec Note Co-signed by Attending: Coverage Notice Comment: Last DP export: 05/16/19 10:42 a Patient Name: TAYO AGUILAR Page [phone] at 0801 All edits/amendments must be made on the electronic document DICTATION DATE: 05/20/19 08 INTERNATIONAL TAX MANAGER: JANEL 05/20/19800 RPT#: [id number] DC DATE:05/16/19 STATUS: DIS IN [facility] [address] [place] [address] END OF REPORT
== END 2019-05-16 17:53 | DRG 64 ==
LOC: D.ER 02:37 → D.M2 04:05 → OBSVTIME 04:05 → D.M2 05-12 17:31
PROVIDERS: Emergency Medicine; ADMIT Family Medicine; ATTEND Family Medicine
DX: I63.512 Cerebral infarction due to unspecified occlusion or stenosis of left middle cerebral artery (principal); G92 Toxic encephalopathy; H81.90 Unspecified disorder of vestibular function, unspecified ear; R53.1 Weakness; I10 Essential (primary) hypertension; F03.90 Unspecified dementia, unspecified severity, without behavioral disturbance, psychotic disturbance, mood disturbance, and anxiety; M25.511 Pain in right shoulder; R40.2134 Coma scale, eyes open, to sound, 24 hours or more after hospital admission; R40.2354 Coma scale, best motor response, localizes pain, 24 hours or more after hospital admission; R40.2244 Coma scale, best verbal response, confused conversation, 24 hours or more after hospital admission; Z87.891 Personal history of nicotine dependence